=== PATIENT | female | born 2000 | race Caucasian/White ===

== ENCOUNTER 2022-08-02 16:04 | Outpatient (REF) | payer BC, SELFPAY ==
[2022-08-02 16:41] LABS: Free T4 Free Thyroxine* 0.95 ng/dL (0.70-1.85)
== END 2022-08-02 16:05 | disposition home or self-care (01) ==
LOC: NPINS 16:04
PROVIDERS: PCP Psychiatry & Neurology Psychiatry; Visit Provider Psychiatry & Neurology Psychiatry
DX: F25.9 Schizoaffective disorder, unspecified (principal)
CPT/HCPCS: 84439; 84443

== ENCOUNTER 2025-02-25 10:17 | Outpatient (CLI) | payer BC, SELFPAY ==
[2025-02-25 13:26] LABS: Albumin* 4.3 g/dL (3.3-5.0); Chloride* 103 mmol/L (96-114); Sodium* 137 mmol/L (135-149)
[2025-02-25 13:28] LABS: Blood Urea Nitrogen* 8 mg/dL (5-24); Creatinine* 0.6 mg/dL (0.5-1.5); Estimated Glomerular Filt Rate 127 ml/min
[2025-02-25 13:29] LABS: Alanine Aminotransferase* 13 U/L (4-35); Alkaline Phosphatase* 52 U/L (40-150); Anion Gap 8 mEq/L (7-15); Aspartate Amino Transferase* 25 U/L (12-35); Bilirubin Total* 0.7 mg/dL (0.1-1.5); Carbon Dioxide* 26 mmol/L (20-32); Cholesterol* 140 mg/dL (90-199); Glucose* 89 mg/dL (60-115); HDL Cholesterol* 51 mg/dL (>=50); LDL Cholesterol Calculated 76 mg/dL (<100); Total Protein* 7.2 g/dL (6.0-8.3); Triglycerides* 67 mg/dL (40-149)
[2025-02-25 14:33] LABS: Hemoglobin A1C* 5.3 % (0-5.6)
[2025-02-25 16:05] LABS: Hematocrit 36.3 % (33.0-51.0); Hemoglobin* 11.6 gm/dL (12.0-16.0); Mean Corpuscular HGB Conc 32 gm/dL (32-36); Mean Corpuscular Hemoglobin 27 pg (26-34); Mean Corpuscular Volume 85 fL (80-100); Platelet Count* 220 K/uL (140-440); Red Blood Count 4.29 m/uL (4.00-5.20); White Blood Count* 5.35 K/uL (4.50-11.00)
[2025-02-25 16:06] LABS: Slide Review Reflex No
== END 2025-02-25 10:18 | disposition home or self-care (01) ==
LOC: NPINS 10:19
PROVIDERS: PCP Family Medicine; Visit Provider Nurse Practitioner Psychiatric/Mental Health
DX: F25.0 Schizoaffective disorder, bipolar type (principal)
CPT/HCPCS: 80053; 80061; 83036; 85027

== ENCOUNTER 2025-11-08 02:42 | Emergency (ER) | payer BC, SELFPAY ==
--- OUTSIDE RECORDS SUMMARY | 2025-11-05 21:55 | XMS_ITS | Encounter Summary ---
Author Organization [facility] Address [address] [place] [address] Care Team Providers Care Physical Therapist Assistant Name Role Phone [facility], [facility] Primary Care Provider Reason for Visit * ReasonCommentsExtremity Weakness Encounter Details DateTypeDepartmentCare Team (Latest Contact Info)Hcabudsfclv46/26/2025 9:55 PM TELEGRAPH REPEATER INSTALLER - 11/05/2025 11:16 PM CSTEmergenron [facility] Emergency Dept [address] [place] [address] Marianne Wilde, DO [facility] [address] [place], [place] [address] Weakness (Primary Dx); Bilateral hip pain Discharge Disposition: Home or Self Care Social History Tobacco UseTypesPacks/DayYears UsedDateSmoking Tobacco: Never AssessedAdolescent EducationAnswerDate RecordedGetting School Help NeededNot on file08/03/2023 CommentsNoSex and Gender InformationValueDate RecordedSex Assigned at BirthNot on fileLegal PogGfppey07/21/2021 10:33 PM CDTGender IdentityNot on file Sexual OrientationNot on filedocumented as of this encounter Last Filed Vital Signs Vital SignReadingTime TakenCommentsBlood Mpeawyhf200/8411/05/2025 11:10 PM TELEGRAPH REPEATER INSTALLER Grfax631511/05/2025 11:10 PM NZABngnutvmvgr07.6 ??C (97.9 ??F)11/05/2025 7:20 PM CSTRespiratory Ihrq605001/06/2025 7:20 PM CSTOxygen Ktcymdqzfm70%11/05/2025 11:10 PM CSTInhaled Oxygen Concentration--Gtqsur97.8 kg (145 lb)11/05/2025 7:20 PM TELEGRAPH REPEATER INSTALLER Witbwr906.3 cm (5' 3.5)11/05/2025 7:20 PM CSTBody Mass Index25.28101/06/2025 7:20 PM CSTdocumented in this encounter Functional Status * Calculated C-SSRS Risk Score (Lifetime/Recent)AnswerDate of AssessmentAuthorNo Risk Pljhhljbo85/26/2025 7:27 PM Cherri Friedman RN * [place] Suicide Severity Rating Scale (Screener/Recent Self-Report)Question AnswerDate of AssessmentAuthor1. Wish to be (Past 1 Month)No11/05/2025 7:27 PM Cherri Friedman RN2. Non-Specific Active Suicidal Thoughts (Past 1 Month)No11/05/2025 7:27 PM Cherri Friedman RN6. Suicidal Behavior (Lifetime)No11/05/2025 7:27 PM Cherri Friedman RN documented as of this encounter Discharge Instructions * Discharge Instructions* Marianne Wilde DO - 11/05/2025 11:08 PM TELEGRAPH REPEATER INSTALLER Please call your PCP as you may need formal pelvic ultrasound in outpatient setting. Monitor for fever, increasing abdominal pain GRAPH REPEATER INSTALLER * Attachments The following attachments cannot be sent through Care Everywhere. * Weakness: Generalized (Uzbek) documented in this encounter Medications at Time of Discharge MedicationSigDispense QuantityRefillsLast FilledStart DateEnd Date ibuprofen (ADVIL/MOTRIN) 600 MG tablet Take 1 tablet (600 mg) by mouth every 6 hours as needed for moderate pain. 20 tablet 501/documented as of this encounter ED Notes * Chetna Paige RN - 11/05/2025 11:15 PM CST Pt discharged. Discharged instructions and papers given. Discharged ambulatory in stable condition.A&Ox4 GRAPH REPEATER INSTALLER * Andry Marianne Mariela, DO - 11/05/2025 11:14 PM CST Emergency Department Note History of Present Illness Chief Complaint Weakness HPI Priya Gaffney is a 24 year old female presenting with weakness amongst other complaints. Patient reports for the past few months having intermittent episodes of weakness predominantly to her lower extremities. She reports feeling as though they are Jell-O. She reports occasional bilateral hip/flank discomfort but seems to be relieved when she is laying flat. Today she was at work and felt as though her legs may have been giving out on her prompting her presentation to the ED. She has occasionally taken ibuprofen which has helped though she did not take anything for analgesia today. She denies any fever, cough, dyspnea, chest pain, significant abdominal pain, current back pain, paresthesias, bladder/bowel incontinence or dysuria. She does note scant vaginal discharge though denies any vaginal bleeding. No concerns for STIs. Independent Historian None Review of External Notes none Past Medical History Medical History and Problem List No past medical history on file. Medications ibuprofen (ADVIL/MOTRIN) 600 MG tablet Surgical History No past surgical history on file. Physical Exam Patient Vitals for the past 24 hrs: BP Temp Temp src Pulse Resp SpO2 Height Weight 11/05/25 2107 108/67 -- -- -- -- 100 % -- -- 11/05/25 1920 114/48 97.9 ??F (36.6 ??C) Temporal 76 18 100 % 1.613 m (5' 3.5) 65.8 kg (145 lb) 11/05/25 1837 128/64 98.3 ??F (36.8 ??C) Oral 86 16 99 % -- -- Physical Exam General: Well-nourished, nontoxic Eyes: PERRL, EOMI, no nystagmus. No scleral icterus or conjunctival injection. ENT: Moist mucus membranes, posterior oropharynx clear without erythema or exudates. TM normal bilaterally Neck: Supple with full range of motion Respiratory: Lungs clear to auscultation bilaterally, no crackles/rubs/wheezes. Good air movement CV: Normal rate and rhythm GI: Abdomen soft and non-distended. No tenderness, guarding or rebound. No CVA tenderness Pelvic: Normal external genitalia. No vaginal bleeding. Scant white cervical discharge. No CMT or adnexal tenderness noted. Cervical os closed. Mattress Stripper RN Gely Skin: Warm, dry. No rashes or petechiae MSK: No peripheral edema. No c/t/l bony tenderness; no bilateral hip tenderness, no overlying warmth/erythema; no b/l knee tenderness Neuro: Alert. No aphasia/facial droop/dysarthria. Tongue midline, normal strength at SCM/trapezius/BUE/BLE. Normal finger to nose. Normal gait. Sensation intact over face/BUE/BLE Psychiatric: Flat affect Diagnostics Lab Results Labs Ordered and Resulted from Time of ED Arrival to Time of ED Departure ROUTINE UA WITH MICROSCOPIC REFLEX TO CULTURE - Abnormal Result Value Color Urine Light Yellow Appearance Urine Slightly Cloudy (*) Glucose Urine Negative Bilirubin Urine Negative Ketones Urine 20 (*) Specific [place] Urine 1.009 Blood Urine Negative pH Urine 7.5 (*) Protein Albumin Urine Negative Urobilinogen Urine Normal Nitrite Urine Negative Leukocyte Esterase Urine Negative Bacteria Urine Moderate (*) Mucus Urine Present (*) RBC Urine 1 WBC Urine 3 Squamous Epithelials Urine 11 (*) BASIC METABOLIC PANEL (LIMITED OCCURRENCES) - Normal Sodium 140 Potassium 4.0 Chloride 104 Carbon Dioxide (CO2) 23 Anion Gap 13 Urea Nitrogen 7.2 Creatinine 0.61 GFR Estimate >90 Calcium 9.4 Glucose 89 HCG QUALITATIVE URINE - Normal hCG Urine Qualitative Negative MAGNESIUM (LIMITED OCCURRENCES) - Normal Magnesium 1.9 HEPATIC FUNCTION PANEL (LIMITED OCCURRENCES) - Normal Protein Total 7.9 Albumin 4.8 Bilirubin Total 0.5 Alkaline Phosphatase 55 AST 23 ALT 13 Bilirubin Direct 0.14 CBC WITH PLATELETS AND DIFFERENTIAL WBC Count 5.34 RBC Count 4.47 Hemoglobin 12.3 Hematocrit 38.1 MCV 85.2 MCH 27.5 MCHC 32.3 RDW 13.3 Platelet Count 236 % Neutrophils 76.5 % Lymphocytes 16.5 % Monocytes 6.0 % Eosinophils 0.4 % Basophils 0.4 % Immature Granulocytes 0.2 NRBCs per 100 WBC 0.0 Absolute Neutrophils 4.09 Absolute Lymphocytes 0.88 Absolute Monocytes 0.32 Absolute Eosinophils <0.03 Absolute Basophils <0.03 Absolute Immature Granulocytes <0.03 Absolute NRBCs <0.03 CHLAMYDIA TRACHOMATIS/NEISSERIA GONORRHOEAE PCR CHLAMYDIA TRACHOMATIS/NEISSERIA GONORRHOEAE BY PCR Imaging No orders to display Independent Interpretation None ED Course Medications Administered Medications ketorolac (TORADOL) injection 15 mg (15 mg Intravenous $Given 11/05/25 0001) Procedures Procedures Discussion of Management None ED Course Additional Documentation None Medical Decision Making / Diagnosis [facility] Diagnoses: None MIPS None [facility] Priya Gaffney is a 24 year old female presenting with complaints of weakness to lower extremities and bilateral hip/flank pain that has been intermittent for months. She describes feeling as though her legs are jello. She unfortunately had a prolonged wait time secondary to large patient volumes. She is nontoxic, in no significant distress on arrival. No focal neurologic deficits appreciated on exam. She ambulates with steady gait. She has no reproducible hip pain to necessitate emergent xray, no reported trauma or evidence to suggest septic joint. Further she does not have any significant abdominal tenderness or flank pain elicited on exam. I do not feel advanced abdominal or pelvic imaging is needed today. She did undergo formal pelvic exam which overall was reassuring, low suspicion for PID/TOA or other serious pathology at this point in time. Labs overall reassuring without profound anemia or significant electrolyte derangement. She is not . UA slightly contaminated sample though does not appear grossly infected. Formal urine culture sent. She denies any dysuria. She has no midline back tenderness on exam, no evidence to suggest cauda equina, discitis, transversemyelitis, epidural abscess or spinal cord compromise. I did discuss quite possible pain may be moremusculoskeletal. I did encourage ibuprofen use as needed though reviewed recommendation to follow-up closely with PCP as additional outpatient imaging including but not limited to pelvic ultrasound may be needed in the future should symptoms persist. She is comfortable with plan of care, all questions addressed, return precautions given. Disposition The patient was discharged. Diagnosis ICD-10-CM 1. Weakness R53.1 2. Bilateral hip pain M25.551 M25.552 Discharge Medications New Prescriptions IBUPROFEN (ADVIL/MOTRIN) 600 MG TABLET Take 1 tablet (600 mg) by mouth every 6 hours as needed for moderate pain. DO Andry Chirinos Lindsey E, DO 11/05/25 2830 GRAPH REPEATER INSTALLER * Cherri Uriostegui, RN - 11/05/2025 7:23 PM CST Pt presents with c/o 2 month history of bilateral flank/lower back pain that radiates to the hips and thighs. She says she is also having some weakness and loss of feeling in bilateral legs. Her legs feel likeJell-O. This has gotten progressively worse over the 2 months. She denies numbness but states they just do not feel normal. It is hard to stand and walk. She denies saddle numbness or loss of bowel or bladder control. Has had some difficulty starting urine stream GRAPH REPEATER INSTALLER documented in this encounter Plan of Treatment Not on file documented as of this encounter Procedures Procedure NamePriorityDate/TimeAssociated DiagnosisCommentsCHLAMYDIA TRACHOMATIS/NEISSERIA GONORRHOEAE BY RUXOHDC05/26/2025 11:06 PM TELEGRAPH REPEATER INSTALLER CHLAMYDIA TRACHOMATIS/NEISSERIA GONORRHOEAE WGNBWSZ02/26/2025 11:06 PM TELEGRAPH REPEATER INSTALLER WET TNQTHTGIEERTSSI57/26/2025 11:06 PM TELEGRAPH REPEATER INSTALLER HCG QUALITATIVE WJCDSHGJV66/26/2025 8:13 PM TELEGRAPH REPEATER INSTALLER ROUTINE UA WITH MICROSCOPIC REFLEX TO IZJTSQCVXVS79/26/2025 8:13 PM TELEGRAPH REPEATER INSTALLER EXTRA XCWLRVMY51/26/2025 8:11 PM TELEGRAPH REPEATER INSTALLER EXTRA RED TOP XSKIDNVR22/26/2025 8:11 PM TELEGRAPH REPEATER INSTALLER EXTRA BLUE TOP SEKEBHYT34/26/2025 8:11 PM TELEGRAPH REPEATER INSTALLER CBC WITH PLATELETS AND MQURASSTHLVKOHSX07/26/2025 8:11 PM TELEGRAPH REPEATER INSTALLER CBC WITH PLATELETS AND DIFFERENTIAL (LIMITED OCCURRENCES)STAT101/06/2025 8:11 PM TELEGRAPH REPEATER INSTALLER HEPATIC FUNCTION PANEL (LIMITED OCCURRENCES)Add-On11/05/2025 8:11 PM TELEGRAPH REPEATER INSTALLER BASIC METABOLIC PANEL (LIMITED OCCURRENCES)STAT101/06/2025 8:11 PM TELEGRAPH REPEATER INSTALLER MAGNESIUM (LIMITED OCCURRENCES)STAT101/06/2025 8:11 PM TELEGRAPH REPEATER INSTALLER documented in this encounter Results * Chlamyda trachomatis/Neisseria gonorrhoeae by PCR (11/05/2025 11:06 PM TELEGRAPH REPEATER INSTALLER) ComponentValueRef RangeTest MethodAnalysis TimePerformed AtPathologist SignatureChlamydia XgkwcentspsAzonzbvfWncqxkey80/27/2025 10:39 AM CSTUU IDD LABORATORYComment: Negative for C. trachomatis rRNA by cosmetics machine operator mediated amplification. A negative result by cosmetics machine operator mediated amplification does not preclude the presence of infection because results are dependent on proper and adequate collection, absence of inhibitors and sufficient rRNA to be detected. Neisseria cxezzmjphblKarzlapuVvssivnn71/27/2025 10:39 AM CSTUU IDD LABORATORY Comment: Negative for N. gonorrhoeae rRNA by cosmetics machine operator mediated amplification. A negative result by cosmetics machine operator mediated amplification does not preclude the presence of N. gonorrhoeae infection because results are dependent on proper and adequate collection, absence of inhibitors and sufficient rRNA to be detected. CTNG Specimen TlhjrgTgevvb53/27/2025 10:39 AM CSTUU IDD LABORATORYSpecimen (Source)Anatomical Location / LateralityCollection Method / VolumeCollection TimeReceived TimeSwabCERVIX UTERI STRUCTURE / UnknownNon-blood Collection / Jmelvxl1211/05/2025 11:06 PM CST11/05/2025 11:12 PM TELEGRAPH REPEATER INSTALLER Narrative Authorizing ProviderResult TypeResult StatusLinbeverly Wilde DOLAB - MICRO GENERAL ORDERABLESFinal ResultPerforming OrganizationAddressCity/State/ZIP Code Phone Number [facility] Inf. Diseases Di[facility]. Lab [address], [address] [place] [address], [facility] * Wet prep (11/05/2025 11:06 PM TELEGRAPH REPEATER INSTALLER)ComponentValueRef RangeTest MethodAnalysis TimePerformed AtPathologist SignatureTrichomonasAbsentAbsent INA 11/05/2025 11:19 PM CSTRH LABORATORYYeastAbsentAbsent INA 11/05/2025 11:19 PM [facility] LABORATORYClue CellsAbsentAbsent INA 11/05/2025 11:19 PM [facility] LABORATORYWBCs/high power fieldNoneNone INA 11/05/2025 11:19 PM [facility] LABORATORYSpecimen (Source)Anatomical Location / LateralityCollection Method / VolumeCollection TimeReceived TimeSwabVAGINAL STRUCTURE / UnknownNon-blood Collection / Bpvvuvq0111/05/2025 11:06 PM TELEGRAPH REPEATER INSTALLER 11/05/2025 11:12 PM TELEGRAPH REPEATER INSTALLER Narrative Authorizing ProviderResult TypeResult StatusLinbeverly Wilde DOLAB - MICRO GENERAL ORDERABLESFinal ResultPerforming OrganizationAddressCity/State/ZIP Code Phone Number [facility] [address] Lab (1st floor, no room number) [place] [address] * HCG qualitative urine (11/05/2025 8:13 PM TELEGRAPH REPEATER INSTALLER)ComponentValueRef RangeTest MethodAnalysis TimePerformed AtPathologist SignaturehCG Urine Qualitative NegativeNegative INA 11/05/2025 8:24 PM [facility] LABORATORYComment:This test is for screening purposes. Results should be interpreted along with the clinical picture.Confirmation testing is available if warranted by ordering [id number], HCG Quantitative .Specimen (Source)Anatomical Location / LateralityCollection Method / VolumeCollection TimeReceived TimeUrineMID-STREAM URINE SPECIMEN / UnknownNon- blood Collection / Ewbhoxs3711/05/2025 8:13 PM CST11/05/2025 8:17 PM TELEGRAPH REPEATER INSTALLER Narrative Authorizing ProviderResult TypeResult StatusMarianne Wilde DOLAB - URINE ORDERABLESFinal ResultPerforming OrganizationAddressCity/State/ZIP CodePhone Number [facility] [address] Lab (1st floor, no room number) [place] [address], [facility] * (ABNORMAL) UA with Microscopic reflex to Culture (11/05/2025 8:13 PM TELEGRAPH REPEATER INSTALLER) ComponentValueRef RangeTest MethodAnalysis TimePerformed AtPathologist SignatureColor UrineLight YellowColorless, Straw, Light Yellow, Yellow 11/05/2025 8:37 PM [facility] LABORATORYAppearance UrineSlightly Cloudy(A)Clear 11/05/2025 8:37 PM [facility] LABORATORYGlucose UrineNegativeNegative mg/dL 11/05/2025 8:37 PM CST LABORATORYBilirubin CewmtWugfzywdIrbjupma64/26/2025 8:37 PM [facility] LABORATORYKetones Urine20(A)Negative mg/dL11/05/2025 8:37 PM TELEGRAPH REPEATER INSTALLER LABORATORYSpecific [place] Urine1.0091.003 - 1.6441211/05/2025 8:37 PM CST LABORATORYBlood JpwvxYihygrkwFgcvanux49/26/2025 8:37 PM [facility] LABORATORYpH Urine7.5(H)5.0 - 7.012 8:37 PM [facility] LABORATORYProtein Albumin Urine NegativeNegative mg/dL11/05/2025 8:37 PM [facility] LABORATORYUrobilinogen Urine NormalNormal mg/dL11/05/2025 8:37 PM [facility] LABORATORYNitrite UrineNegative Noeaxrxz49/26/2025 8:37 PM [facility] LABORATORYLeukocyte Esterase UrineNegative Otkdptir94/26/2025 8:37 PM [facility] LABORATORYBacteria UrineModerate(A)None Seen /HPF11/05/2025 8:37 PM [facility] LABORATORYMucus UrinePresent(A)None Seen /LPF 11/05/2025 8:37 PM [facility] LABORATORYRBC Urine1<=2 /HPF11/05/2025 8:37 PM [facility] LABORATORYWBC Urine3<=5 /HPF11/05/2025 8:37 PM [facility] LABORATORYSquamous Epithelials Urine11(H)<=1 /HPF11/05/2025 8:37 PM [facility] LABORATORYSpecimen (Source)Anatomical Location / LateralityCollection Method / VolumeCollection TimeReceived TimeUrineMID-STREAM URINE SPECIMEN / UnknownNon-blood Collection / Lgnjrxa5211/05/2025 8:13 PM CST11/05/2025 8:17 PM TELEGRAPH REPEATER INSTALLER Narrative LABORATORY - 11/05/2025 8:37 PM TELEGRAPH REPEATER INSTALLER Urine Culture not indicated Authorizing ProviderResult TypeResult StatusLinbeverly Wilde DOLAB - URINE ORDERABLESFinal ResultPerforming OrganizationAddressCity/State/ZIP CodePhone Number LABORATORY [facility] Lab [address] Lab (1st floor, no room number) [place] [address] * Hepatic Function Panel (Limited Occurrences) (11/05/2025 8:11 PM TELEGRAPH REPEATER INSTALLER)Component ValueRef RangeTest MethodAnalysis TimePerformed AtPathologist SignatureProtein Total7.96.4 - 8.3 g/dL11/05/2025 10:53 PM CST LABORATORYAlbumin4.83.5 - 5.2 g/dL11/05/2025 10:53 PM CST LABORATORYBilirubin Total0.5<=1.2 mg/dL 11/05/2025 10:53 PM [facility] LABORATORYAlkaline Jnyrxqvtvfi0359 - 150 U/L 11/05/2025 10:53 PM CSTRH JYOHAIDOAYZPB917 - 45 U/L101/06/2025 10:53 PM CSTRH JNDHQVAHTDJTS180 - 50 U/L101/06/2025 10:53 PM CST LABORATORYBilirubin Direct 0.140.00 - 0.30 mg/dL11/05/2025 10:53 PM [facility] LABORATORYComment:As of 03/24/25, reference ranges and trending lines may vary depending on the testing location.Specimen (Source)Anatomical Location / LateralityCollection Method / VolumeCollection TimeReceived TimeBloodSTRUCTURE OF RIGHT HAND / Unknown Venipuncture / Wtgzdng3911/05/2025 8:11 PM CST11/05/2025 8:25 PM TELEGRAPH REPEATER INSTALLER Narrative Authorizing ProviderResult TypeResult StatusLinbeverly Wilde DOLAB - BLOOD ORDERABLESFinal ResultPerforming OrganizationAddressCity/State/ZIP CodePhone Number [facility] Lab [address] Lab (1st floor, no room number) [place] [address] * Magnesium (Limited Occurrences) (11/05/2025 8:11 PM TELEGRAPH REPEATER INSTALLER)ComponentValueRef RangeTest MethodAnalysis TimePerformed AtPathologist SignatureMagnesium1.91.7 - 2.3 mg/dL11/05/2025 10:53 PM [facility] LABORATORYSpecimen (Source)Anatomical Location / LateralityCollection Method / VolumeCollection TimeReceived Time BloodSTRUCTURE OF RIGHT HAND / UnknownVenipuncture / Khftpig5311/05/2025 8:11 PM CST11/05/2025 8:25 PM TELEGRAPH REPEATER INSTALLER Narrative Authorizing ProviderResult TypeResult StatusLindsey Mariela Wilde DOLAB - BLOOD ORDERABLESFinal ResultPerforming OrganizationAddressCity/State/ZIP CodePhone Number [facility] [address] Lab (1st floor, no room number) [place] [address], [place] * Extra Red Top Tube (11/05/2025 8:11 PM TELEGRAPH REPEATER INSTALLER)ComponentValueRef RangeTest Method Analysis TimePerformed AtPathologist SignatureHold UprehpqeFWN15/26/2025 9:31 PM CST LABORATORYSpecimen (Source)Anatomical Location / LateralityCollection Method / VolumeCollection TimeReceived TimeBloodSTRUCTURE OF RIGHT HAND / UnknownVenipuncture / Yskterk0611/05/2025 8:11 PM CST11/05/2025 8:25 PM TELEGRAPH REPEATER INSTALLER Narrative Authorizing ProviderResult TypeResult StatusLindsey E Andry DOLAB - BLOOD ORDERABLESFinal ResultPerforming OrganizationAddressCity/State/ZIP CodePhone Number [facility] [address] Lab (1st floor, no room number) [place] [address], [facility] * Extra Blue Top Tube (11/05/2025 8:11 PM TELEGRAPH REPEATER INSTALLER)ComponentValueRef RangeTest Method Analysis TimePerformed AtPathologist SignatureHold KbaimtkeKXB76/26/2025 9:31 PM [facility] LABORATORYSpecimen (Source)Anatomical Location / LateralityCollection Method / VolumeCollection TimeReceived TimeBloodSTRUCTURE OF RIGHT HAND / UnknownVenipuncture / Hgjrwjv3211/05/2025 8:11 PM CST11/05/2025 8:25 PM TELEGRAPH REPEATER INSTALLER Narrative Authorizing ProviderResult TypeResult StatusLindsey E Andry DOLAB - BLOOD ORDERABLESFinal ResultPerforming OrganizationAddressCity/State/ZIP CodePhone Number [facility] [address] Lab (1st floor, no room number) [place] [address], [facility] * CBC with platelets and differential (11/05/2025 8:11 PM TELEGRAPH REPEATER INSTALLER)ComponentValueRef RangeTest MethodAnalysis TimePerformed AtPathologist SignatureWBC Count5.34 4.00 - 11.00 10e3/uL11/05/2025 8:28 PM [facility] LABORATORYRBC Count4.473.80 - 5.20 10e6/uL11/05/2025 8:28 PM [facility] VWBXAWTJYRSuiifpymqz79.311.7 - 15.7 g/dL 11/05/2025 8:28 PM [facility] UNABKVLLOZNdwdmrzyau42.135.0 - 47.0 %11/05/2025 8:28 PM [facility] LPTRURQLHABJG10.278.0 - 100.0 fL11/05/2025 8:28 PM [facility] LABORATORY MCH27.526.5 - 33.0 pg11/05/2025 8:28 PM [facility] USLFFVDMALDJYN97.331.5 - 36.5 g/dL11/05/2025 8:28 PM [facility] ZSQOLJWXPEKUV36.310.0 - 15.0 %11/05/2025 8:28 PM [facility] LABORATORYPlatelet Aystc954169 - 450 10e3/uL11/05/2025 8:28 PM [facility] LABORATORY% Mkumfyjjtps57.5%11/05/2025 8:28 PM [facility] LABORATORY% Lymphocytes 16.5%11/05/2025 8:28 PM [facility] LABORATORY% Monocytes6.0%11/05/2025 8:28 PM [facility] LABORATORY% Eosinophils0.4%11/05/2025 8:28 PM [facility] LABORATORY% Basophils 0.4%11/05/2025 8:28 PM [facility] LABORATORY% Immature Granulocytes0.2%11/05/2025 8:28 PM [facility] LABORATORYNRBCs per 100 WBC0.0<1.0 /5764311/05/2025 8:28 PM [facility] LABORATORYAbsolute Neutrophils4.091.60 - 8.30 10e3/uL11/05/2025 8:28 PM [facility] LABORATORYAbsolute Lymphocytes0.880.80 - 5.30 10e3/uL11/05/2025 8:28 PM [facility] LABORATORYAbsolute Monocytes0.320.00 - 1.30 10e3/uL11/05/2025 8:28 PM [facility] LABORATORYAbsolute Eosinophils<0.030.00 - 0.70 10e3/uL11/05/2025 8:28 PM [facility] LABORATORYAbsolute Basophils<0.030.00 - 0.20 10e3/uL11/05/2025 8:28 PM [facility] LABORATORYAbsolute Immature Granulocytes<0.03<=0.40 10e3/uL11/05/2025 8:28 PM [facility] LABORATORYAbsolute NRBCs<0.0310e3/uL11/05/2025 8:28 PM [facility] LABORATORY Specimen (Source)Anatomical Location / LateralityCollection Method / Volume Collection TimeReceived TimeBloodSTRUCTURE OF RIGHT HAND / UnknownVenipuncture / Mefamah3711/05/2025 8:11 PM CST11/05/2025 8:25 PM TELEGRAPH REPEATER INSTALLER Narrative Authorizing ProviderResult TypeResult StatusLinbeverly Wilde DOLAB - BLOOD ORDERABLESFinal ResultPerforming OrganizationAddressCity/State/ZIP CodePhone Number [facility] [address] Lab (1st floor, no room number) [place] [address], [facility] [facility] * Basic Metabolic Panel (Limited Occurrences) (11/05/2025 8:11 PM TELEGRAPH REPEATER INSTALLER)Component ValueRef RangeTest MethodAnalysis TimePerformed AtPathologist SignatureSodium 542652 - 145 mmol/L101/06/2025 8:52 PM [facility] LABORATORYPotassium4.03.4 - 5.3 mmol/L101/06/2025 8:52 PM [facility] XMSZERULXHJtvsrwsm31320 - 107 mmol/L101/06/2025 8:52 PM [facility] LABORATORYCarbon Dioxide (CO2)2322 - 29 mmol/L101/06/2025 8:52 PM [facility] LABORATORYAnion Zqt442 - 15 mmol/L101/06/2025 8:52 PM [facility] Urea Nitrogen7.26.0 - 20.0 mg/dL11/05/2025 8:52 PM [facility] LABORATORYCreatinine 0.610.51 - 0.95 mg/dL11/05/2025 8:52 PM [facility] LABORATORYGFR Estimate>90>60 mL/min/1.56h43411/05/2025 8:52 PM [facility] LABORATORYComment:eGFR calculated using 2020 CKD-EPI equation.Calcium9.48.8 - 10.4 mg/dL11/05/2025 8:52 PM [facility] MALBKEBLTVVgnuukm5079 - 99 mg/dL11/05/2025 8:52 PM [facility] LABORATORYSpecimen (Source)Anatomical Location / LateralityCollection Method / VolumeCollection TimeReceived TimeBloodSTRUCTURE OF RIGHT HAND / UnknownVenipuncture / Unknown 11/05/2025 8:11 PM CST11/05/2025 8:25 PM TELEGRAPH REPEATER INSTALLER Narrative Authorizing ProviderResult TypeResult StatusLinbeverly Wilde DOLAB - BLOOD ORDERABLESFinal ResultPerforming OrganizationAddressCity/State/ZIP CodePhone Number [facility] [address] [facility] (1st floor, no room number) [place] [address], [facility] documented in this encounter Visit Diagnoses Diagnosis Weakness- Primary Other malaise and fatigue Bilateral hip pain Pain in joint, pelvic region and thigh documented in this encounter Administered Medications Medication OrderMAR ActionAction DateDoseRateSite ketorolac (TORADOL) injection 15 mg 15 mg, Intravenous, ONCE, On Sat11/05/25 at 2235, For 1 dose, Can cause pain on injection. If ordered intravenously (IV) : administer through a running maintenance fluid over 1 minute followed by a flush. If patient complains of pain on injection, may dilute 15-30 mg in 5 mL and push over 1 to 2 minutes. $Given11/05/2025 10:39 PM CST15 mgdocumented in this encounter Active and Recently Administered Medications Times are shown in TELEGRAPH REPEATER INSTALLER.Medication Order11/03// ketorolac (TORADOL) injection 15 mg (COMPLETED) 15 mg, Intravenous, ONCE, On Sat11/05/25 at 2235, For 1 dose, Can cause pain on injection. If ordered intravenously (IV) : administer through a running maintenance fluid over 1 minute followed by a flush. If patient complains of pain on injection, may dilute 15-30 mg in 5 mL and push over 1 to 2 minutes. * 2239 ($Given - Provider: Whitney Stafford RN) documented in this encounter Care Teams Team MemberRelationshipSpecialtyStart [facility], [address] [address] PCP - Ftiismu51/26/25documented as of this encounter
--- OUTSIDE RECORDS SUMMARY | 2025-11-08 02:44 | XMS_ITS | Encounter Summary ---
Author Organization [facility] Address [address] [place] [address] Care Team Providers Care Raw Products Director Name Role Phone [facility], [facility] Primary Care Provider Reason for Visit * ReasonOnset GjghXobtcrnvVergvwe73/27/2025 Encounter Details DateTypeDepartmentCare Team (Latest Contact Info)Cmhdwrawwgh41/27/2025Telephone [facility] Nurse Advisors [facility] [place] [address] Radha Whitney RN Results Social History Tobacco UseTypesPacks/DayYears UsedDateSmoking Tobacco: Never AssessedAdolescent EducationAnswerDate RecordedGetting School Help NeededNot on file08/03/2023 CommentsNoSex and Gender InformationValueDate RecordedSex Assigned at BirthNot on fileLegal PckPutxcz58/21/2021 10:33 PM CDTGender IdentityNot on file Sexual OrientationNot on filedocumented as of this encounter Miscellaneous Notes * Telephone Encounter - Radha Whitney RN - 11/06/2025 4:56 PM CST Pt calling for results from 11/05/25 ED Visit - results given to pt. Closing of Call: RN asked: Is there anything else I can assist you with? Yes RN stated: Thank you for visiting us at [facility]. Yes Radha Whitney RN Emergency Department Results Team ACT LENS INSPECTOR documented in this encounter Plan of Treatment Not on file documented as of this encounter Visit Diagnoses Not on filedocumented in this encounter Care Teams Team MemberRelationshipSpecialtyStart DateEnd [employer], [facility] [address] [place] [address] PCP - Rbtxuya79/26/25documented as of this encounter
--- OUTSIDE RECORDS SUMMARY | 2025-11-08 02:44 | XMS_ITS | Clinical Summary ---
Author Organization [facility] Address [address] [place] [address] Care Team Providers Care Test Pilot Name Role Phone Pcp, No Primary Care Provider Unavailabl e Allergies Active AllergyReactionsCriticalityNoted DateCommentsDust Mites03/11/2007 nasal congestion Unlisted Allergen (Include Detail In Comments)03/11/2007 seasonal allergies Medications MedicationSigDispense QuantityRefillsLast FilledStart DateEnd DateStatus fluticasone, 50 mcg per actuation, nasal (FLONASE) 50 mcg/actuation nasal spray Indications:Sore throatInhale 1 [place] in the nostril(s) 2 times daily. 1 Bottle 12002/06/2012ctive Additional Information Patient not taking.Reported on 06/05/2025 FLUoxetine (PROZAC) 10 mg capsule Take 1 capsule by mouth once daily.Active lurasidone (Latuda) 120 mg tab Take 120 mg by mouth once daily.Active Active Problems ProblemNoted DateDiagnosed DateAllergic rhinitis, cause nwxoovqosyq33/17/2007 Immunizations ImmunizationAdministration DatesNext UyoVFcQ3012/02/2003,03/21/2000,05/29/1999, 03/30/1999,01/27/1999HIB PRP-OMP (PedvaxHIB)03/21/2000,05/29/1999,03/30/1999, 01/27/1999Hepatitis B (Peds)09/28/1999,01/27/1999,1998Inactivated Polio Certjwi6212/02/2003,03/21/2000,03/30/1999,01/27/1999MMR12/02/2003,03/21/2000 Pneumococcal conj 7-Valent (Prevnar 7)12/08/2001Varicella Mcquipl9512/08/2001 Family History Medical HistoryRelationNameCommentsAllergiesFatherCancer-breastMaternal GrandmotherHyperlipidemiaMaternal GrandmotherCancer-breastMotherHeart Disease Othermaternal great grandpaDiabetesPaternal GrandmotherAsthmaNo Family History Cancer-colonNo Family HistoryRelationNameStatusCommentsFatherMaternal GrandmotherMotherOtherPaternal Grandmother Social History Tobacco UseTypesPacks/DayYears UsedDateSmoking Tobacco: NeverSmokeless Tobacco: Never Tobacco Cessation:Counseling Given: Yes Alcohol UseStandard Drinks/WeekCommentsNo0 (1 standard drink = 0.6 oz pure alcohol)CommentsNoSex and Gender InformationValueDate RecordedSex Assigned at BirthNot on fileLegal FmeBcztga46/14/2013 7:11 AM CSTGender Identity Not on fileSexual OrientationNot on file Last Filed Vital Signs Vital SignReadingTime TakenCommentsBlood Hwrxpqpk763/5907 1:16 PM CDT Juaqh748406/05/2025 1:16 PM AYRVejmclfxeln51.3 ??C (97.4 ??F)06/05/2025 1:16 PM CDTRespiratory Ryuz500306/05/2025 1:16 PM CDTOxygen Jxqjwvpjtj62%06/05/2025 1:16 PM CDTInhaled Oxygen Concentration--Ykxqqc59.3 kg (152 lb 11.2 oz)06/05/2025 1:16 PM MHRWgxacf426.6 cm (5' 4)04/01/2023 12:00 AM CDTBody Mass Index26.21 04/01/2023 12:00 AM CDT Plan of Treatment Health MaintenanceDue DateLast DoneCommentsTetanus laxfmnr9311/28/2009Depression screening for age 12+2010HIV for age 15-65011/28/2013HPV series for age 9- 45 (1 - 3-dose series)2013MI (ht and wt on same day) for age 18+ 2016Hepatitis C screening for age 18-7911/28/2016Pap test for age 21-65 2019COVID-19 vaccine series (2024- season)506/, 03/10/2021Influenza Vaccine (#1)2025Hepatitis B series for 19+Completed 09/28/1999, 01/27/1999, 1998Pneumococcal series for age 6-49Aged Out 12/08/2001No longer eligible based on patient's age to complete this topic Insurance * Guarantor: Mounika Gaffney TypeRelation to PatientDate of PhoneBilling AddressPersonal/VoeasvLkqbjp83/01/1963 [facility] [place] [id number] Care Teams Team MemberRelationshipSpecialtyStart DateEnd Date Pcp, No PCP - General12/15/13
--- OUTSIDE RECORDS SUMMARY | 2025-11-08 02:44 | XMS_ITS | Clinical Summary ---
Author Organization [place] Address [address] [place] [address] Care Team Providers Care Professional Bass Fisherman Name Role Phone [facility], [facility] Primary Care Provider Allergies No known active allergies Medications MedicationSigDispense QuantityRefillsLast FilledStart DateEnd DateStatus ibuprofen (ADVIL/MOTRIN) 600 MG tablet Take 1 tablet (600 mg) by mouth every 6 hours as needed for moderate pain. 20 tablet 5012/05/2025ctive ibuprofen (ADVIL/MOTRIN) 200 MG tablet Take 3 tablets (600 mg) by mouth every 8 hours as needed for mild pain 1 tablet Discontinued Encounters DateTypeDepartmentCare NzwzZankkskmwjw82/27/2025Telephone [facility] [address] [place] [address] Radha Whitney RN Qgshczc8911/05/2025 9:55 PM CUTTING DEPARTMENT SUPERVISOR - 11/05/2025 11:16 PM CSTEmergency [facility] [address] [place] [id number] Marianne Wilde, DO Weakness (Primary Dx); Bilateral hip pain Discharge Disposition: Home or Self Care11/05/2025Travelfrom Last 3 Months Social History Tobacco UseTypesPacks/DayYears UsedDateSmoking Tobacco: Never AssessedAdolescent EducationAnswerDate RecordedGetting School Help NeededNot on file08/03/2023 CommentsNoSex and Gender InformationValueDate RecordedSex Assigned at BirthNot on fileLegal AtgJtclpk02/21/2021 10:33 PM CDTGender IdentityNot on file Sexual OrientationNot on file Last Filed Vital Signs Vital SignReadingTime TakenCommentsBlood Openiboc727/8411/05/2025 11:10 PM CUTTING DEPARTMENT SUPERVISOR Zoeho159911/05/2025 11:10 PM CKXWowycqkscqn26.6 ??C (97.9 ??F)11/05/2025 7:20 PM CSTRespiratory Ztqv622901/06/2025 7:20 PM CSTOxygen Qotoiwpree89%11/05/2025 11:10 PM CSTInhaled Oxygen Concentration--Zdpajt36.8 kg (145 lb)11/05/2025 7:20 PM CUTTING DEPARTMENT SUPERVISOR Otakss181.3 cm (5' 3.5)11/05/2025 7:20 PM CSTBody Mass Index25.28101/06/2025 7:20 PM CUTTING DEPARTMENT SUPERVISOR Plan of Treatment Health MaintenanceDue DateLast DoneCommentsADVANCE CARE MTOMBOHV88/18/1999ANNUAL REVIEW OF HM MWBABA04 1998YEARLY PREVENTIVE VISIT2001DTAP/TDAP/TD VACCINE (6 - Tdap), 03/21/2000, 05/29/1999, Additional history existsHIV SLMGPEJYD66/18/2014HPV VACCINE (1 - 3-dose series)2013 HEPATITIS C OKGIMTNBD42/18/6583KAQ6611/28/2019PHQ-2 (once per calendar year) 2024OVID-19 VACCINE ( - season)2025INFLUENZA VACCINE (#1) 2025ZOSTER VACCINE (1 of 2)2048HEPATITIS B VACCINECompleted 09/28/1999, 01/27/1999, 1998PNEUMOCOCCAL VACCINE: PEDIATRICS (0 to 5 YEARS) AND AT-RISK PATIENTS (6 to 49 YEARS)Aged Out12/08/2001No longer eligible based on patient's age to complete this topicCHLAMYDIA SCREENINGDiscontinued 11/05/2025MENINGITIS VACCINEAged OutNo longer eligible based on patient's age to complete this topic Procedures Procedure NamePriorityDate/TimeAssociated DiagnosisCommentsCHLAMYDIA TRACHOMATIS/NEISSERIA GONORRHOEAE BY MBBQGQL67/26/2025 11:06 PM CUTTING DEPARTMENT SUPERVISOR CHLAMYDIA TRACHOMATIS/NEISSERIA GONORRHOEAE KNOQNDL22/26/2025 11:06 PM CUTTING DEPARTMENT SUPERVISOR WET PMMCPLKVJVGUMTU84/26/2025 11:06 PM CUTTING DEPARTMENT SUPERVISOR HCG QUALITATIVE JCVIMHNZB83/26/2025 8:13 PM CUTTING DEPARTMENT SUPERVISOR ROUTINE UA WITH MICROSCOPIC REFLEX TO HLYMKWPRFWO68/26/2025 8:13 PM CUTTING DEPARTMENT SUPERVISOR CBC WITH PLATELETS AND DIFFERENTIAL (LIMITED OCCURRENCES)STAT101/06/2025 8:11 PM CUTTING DEPARTMENT SUPERVISOR HEPATIC FUNCTION PANEL (LIMITED OCCURRENCES)Add-On11/05/2025 8:11 PM CUTTING DEPARTMENT SUPERVISOR MAGNESIUM (LIMITED OCCURRENCES)STAT101/06/2025 8:11 PM CUTTING DEPARTMENT SUPERVISOR EXTRA RED TOP JFKFIIEC15/26/2025 8:11 PM CUTTING DEPARTMENT SUPERVISOR EXTRA BLUE TOP KBQUNSHQ33/26/2025 8:11 PM CUTTING DEPARTMENT SUPERVISOR CBC WITH PLATELETS AND CZGPMCNGUJVLVWNJ71/26/2025 8:11 PM CUTTING DEPARTMENT SUPERVISOR EXTRA ZIYJGVOL24/26/2025 8:11 PM CUTTING DEPARTMENT SUPERVISOR BASIC METABOLIC PANEL (LIMITED OCCURRENCES)STAT101/06/2025 8:11 PM CUTTING DEPARTMENT SUPERVISOR from Last 3 Months Results * Chlamyda trachomatis/Neisseria gonorrhoeae by PCR (11/05/2025 11:06 PM CUTTING DEPARTMENT SUPERVISOR) ComponentValueRef RangeTest MethodAnalysis TimePerformed AtPathologist SignatureChlamydia GiqctgwexbtVvsbrmyxEhalwjrf07/27/2025 10:39 AM CSTUU IDD LABORATORYComment: Negative for C. trachomatis rRNA by telehealth case manager mediated amplification. A negative result by telehealth case manager mediated amplification does not preclude the presence of infection because results are dependent on proper and adequate collection, absence of inhibitors and sufficient rRNA to be detected. Neisseria ptwmvohdtswZbzvwclkYzmxgslb01/27/2025 10:39 AM CSTUU [facility]D LABORATORY Comment: Negative for N. gonorrhoeae rRNA by telehealth case manager mediated amplification. A negative result by telehealth case manager mediated amplification does not preclude the presence of N. gonorrhoeae infection because results are dependent on proper and adequate collection, absence of inhibitors and sufficient rRNA to be detected. CTNG Specimen EwskhzQkjzsj13/27/2025 10:39 AM CSTUU IDD LABORATORYSpecimen (Source)Anatomical Location / LateralityCollection Method / VolumeCollection TimeReceived TimeSwabCERVIX UTERI STRUCTURE / UnknownNon-blood Collection / Otilpez3611/05/2025 11:06 PM CST11/05/2025 11:12 PM CUTTING DEPARTMENT SUPERVISOR Narrative Authorizing ProviderResult TypeResult StatusLinbeverly KRAUSE - MICRO GENERAL ORDERABLESFinal ResultPerforming OrganizationAddressCity/State/ZIP Code Phone Number [facility] Inf. Diseases Diag. Lab [address] [facility], [address] [place] [address], [facility] * Wet prep (11/05/2025 11:06 PM CUTTING DEPARTMENT SUPERVISOR)ComponentValueRef RangeTest MethodAnalysis TimePerformed AtPathologist SignatureTrichomonasAbsentAbsent INA 11/05/2025 11:19 PM [facility] LABORATORYYeastAbsentAbsent INA 11/05/2025 11:19 PM [facility] LABORATORYClue CellsAbsentAbsent INA 11/05/2025 11:19 PM [facility] LABORATORYWBCs/high power fieldNoneNone INA 11/05/2025 11:19 PM [facility] LABORATORYSpecimen (Source)Anatomical Location / LateralityCollection Method / VolumeCollection TimeReceived TimeSwabVAGINAL STRUCTURE / UnknownNon-blood Collection / Ziwwqhq0411/05/2025 11:06 PM CUTTING DEPARTMENT SUPERVISOR 11/05/2025 11:12 PM CUTTING DEPARTMENT SUPERVISOR Narrative Authorizing ProviderResult TypeResult StatusLinbeverly KRAUSE - MICRO GENERAL ORDERABLESFinal ResultPerforming OrganizationAddressCity/State/ZIP Code Phone Number [facility] [address] [facility] (1st floor, no room number) [place] [address] * HCG qualitative urine (11/05/2025 8:13 PM CUTTING DEPARTMENT SUPERVISOR)ComponentValueRef RangeTest MethodAnalysis TimePerformed AtPathologist SignaturehCG Urine Qualitative NegativeNegative INA 11/05/2025 8:24 PM [facility] LABORATORYComment:This test is for screening purposes. Results should be interpreted along with the clinical picture.Confirmation testing is available if warranted by ordering [id number], HCG Quantitative .Specimen (Source)Anatomical Location / LateralityCollection Method / VolumeCollection TimeReceived TimeUrineMID-STREAM URINE SPECIMEN / UnknownNon- blood Collection / Ptmlwhd1211/05/2025 8:13 PM CST11/05/2025 8:17 PM CUTTING DEPARTMENT SUPERVISOR Narrative Authorizing ProviderResult TypeResult StatusLinbeverly Wilde DOLAB - URINE ORDERABLESFinal ResultPerforming OrganizationAddressCity/State/ZIP CodePhone Number [facility] Lab [address] [facility] Lab (1st floor, no room number) [place] [address] * (ABNORMAL) UA with Microscopic reflex to Culture (11/05/2025 8:13 PM CUTTING DEPARTMENT SUPERVISOR) ComponentValueRef RangeTest MethodAnalysis TimePerformed AtPathologist SignatureColor UrineLight YellowColorless, Straw, Light Yellow, Yellow 11/05/2025 8:37 PM [facility] LABORATORYAppearance UrineSlightly Cloudy(A)Clear 11/05/2025 8:37 PM [facility] LABORATORYGlucose UrineNegativeNegative mg/dL 11/05/2025 8:37 PM [facility] LABORATORYBilirubin YmzqvJdwrbmuqVvbpgynh69/26/2025 8:37 PM [facility] LABORATORYKetones Urine20(A)Negative mg/dL11/05/2025 8:37 PM CUTTING DEPARTMENT SUPERVISOR LABORATORYSpecific [place] Urine1.0091.003 - 1.2375611/05/2025 8:37 PM CST LABORATORYBlood NluucCuayrthiCgrbovoe29/26/2025 8:37 PM [facility] LABORATORYpH Urine7.5(H)5.0 - 7.012 8:37 PM [facility] LABORATORYProtein Albumin Urine NegativeNegative mg/dL11/05/2025 8:37 PM [facility] LABORATORYUrobilinogen Urine NormalNormal mg/dL11/05/2025 8:37 PM [facility] LABORATORYNitrite UrineNegative Lxwqaehf15/26/2025 8:37 PM [facility] LABORATORYLeukocyte Esterase UrineNegative Tozyntyr51/26/2025 8:37 PM [facility] LABORATORYBacteria UrineModerate(A)None Seen /HPF11/05/2025 8:37 PM [facility] LABORATORYMucus UrinePresent(A)None Seen /LPF 11/05/2025 8:37 PM [facility] LABORATORYRBC Urine1<=2 /HPF11/05/2025 8:37 PM [facility] LABORATORYWBC Urine3<=5 /HPF11/05/2025 8:37 PM [facility] LABORATORYSquamous Epithelials Urine11(H)<=1 /HPF11/05/2025 8:37 PM [facility] LABORATORYSpecimen (Source)Anatomical Location / LateralityCollection Method / VolumeCollection TimeReceived TimeUrineMID-STREAM URINE SPECIMEN / UnknownNon-blood Collection / Rbkbgxd5011/05/2025 8:13 PM CST11/05/2025 8:17 PM CUTTING DEPARTMENT SUPERVISOR Narrative LABORATORY - 11/05/2025 8:37 PM CUTTING DEPARTMENT SUPERVISOR Urine Culture not indicated Authorizing ProviderResult TypeResult StatusLindsey Mariela Wilde DOLAB - URINE ORDERABLESFinal ResultPerforming OrganizationAddressCity/State/ZIP CodePhone Number [facility] [address] Lab (1st floor, no room number) [place] [address], [facility] * Extra Red Top Tube (11/05/2025 8:11 PM CUTTING DEPARTMENT SUPERVISOR)ComponentValueRef RangeTest Method Analysis TimePerformed AtPathologist SignatureHold FxqrdviqOST23/26/2025 9:31 PM [facility] LABORATORYSpecimen (Source)Anatomical Location / LateralityCollection Method / VolumeCollection TimeReceived TimeBloodSTRUCTURE OF RIGHT HAND / UnknownVenipuncture / Xrfdqfv6411/05/2025 8:11 PM CST11/05/2025 8:25 PM CUTTING DEPARTMENT SUPERVISOR Narrative Authorizing ProviderResult TypeResult StatusLindsalma delia Wilde DOLAB - BLOOD ORDERABLESFinal ResultPerforming OrganizationAddressCity/State/ZIP CodePhone Number [facility] [address] Lab (1st floor, no room number) [place] [address] * Extra Blue Top Tube (11/05/2025 8:11 PM CUTTING DEPARTMENT SUPERVISOR)ComponentValueRef RangeTest Method Analysis TimePerformed AtPathologist SignatureHold LghsbrnvRUL24/26/2025 9:31 PM [facility] LABORATORYSpecimen (Source)Anatomical Location / LateralityCollection Method / VolumeCollection TimeReceived TimeBloodSTRUCTURE OF RIGHT HAND / UnknownVenipuncture / Tjzzjjf9211/05/2025 8:11 PM CST11/05/2025 8:25 PM CUTTING DEPARTMENT SUPERVISOR Narrative Authorizing ProviderResult TypeResult StatusLinbeverly Wilde DOLAB - BLOOD ORDERABLESFinal ResultPerforming OrganizationAddressCity/State/ZIP CodePhone Number [facility] Lab [address] [facility] Lab (1st floor, no room number) [place] [address] * CBC with platelets and differential (11/05/2025 8:11 PM CUTTING DEPARTMENT SUPERVISOR)ComponentValueRef RangeTest MethodAnalysis TimePerformed AtPathologist SignatureWBC Count5.34 4.00 - 11.00 10e3/uL11/05/2025 8:28 PM [facility] LABORATORYRBC Count4.473.80 - 5.20 10e6/uL11/05/2025 8:28 PM [facility] BWMQLMMXWKNjzhuyprxn63.311.7 - 15.7 g/dL 11/05/2025 8:28 PM [facility] IBWJSTIBMUDqntusoxrp59.135.0 - 47.0 %11/05/2025 8:28 PM [facility] IVMFVAKWZLTZZ44.278.0 - 100.0 fL11/05/2025 8:28 PM [facility] LABORATORY MCH27.526.5 - 33.0 pg11/05/2025 8:28 PM [facility] GILIKLAHUPNTHJ85.331.5 - 36.5 g/dL11/05/2025 8:28 PM [facility] QOCSOWFVUSFHU34.310.0 - 15.0 %11/05/2025 8:28 PM [facility] LABORATORYPlatelet Rxfry196726 - 450 10e3/uL11/05/2025 8:28 PM [facility] LABORATORY% Tsdtffpjujr07.5%11/05/2025 8:28 PM [facility] LABORATORY% Lymphocytes 16.5%11/05/2025 8:28 PM [facility] LAB[facility]ATORY% Monocytes6.0%11/05/2025 8:28 PM CUTTING DEPARTMENT SUPERVISOR LABORATORY% Eosinophils0.4%11/05/2025 8:28 PM [facility] LABORATORY% Basophils 0.4%11/05/2025 8:28 PM [facility] LABORATORY% Immature Granulocytes0.2%11/05/2025 8:28 PM CST LABORATORYNRBCs per 100 WBC0.0<1.0 /8299611/05/2025 8:28 PM CST LABORATORYAbsolute Neutrophils4.091.60 - 8.30 10e3/uL11/05/2025 8:28 PM CST LABORATORYAbsolute Lymphocytes0.880.80 - 5.30 10e3/uL11/05/2025 8:28 PM CST LABORATORYAbsolute Monocytes0.320.00 - 1.30 10e3/uL11/05/2025 8:28 PM [facility] LABORATORYAbsolute Eosinophils<0.030.00 - 0.70 10e3/uL11/05/2025 8:28 PM [facility] LABORATORYAbsolute Basophils<0.030.00 - 0.20 10e3/uL11/05/2025 8:28 PM [facility] LABORATORYAbsolute Immature Granulocytes<0.03<=0.40 10e3/uL11/05/2025 8:28 PM [facility] LABORATORYAbsolute NRBCs<0.0310e3/uL11/05/2025 8:28 PM [facility] LABORATORY Specimen (Source)Anatomical Location / LateralityCollection Method / Volume Collection TimeReceived TimeBloodSTRUCTURE OF RIGHT HAND / UnknownVenipuncture / Rksialt4311/05/2025 8:11 PM CST11/05/2025 8:25 PM CUTTING DEPARTMENT SUPERVISOR Narrative Authorizing ProviderResult TypeResult StatusLinbeverly Wilde DOLAB - BLOOD ORDERABLESFinal ResultPerforming OrganizationAddressCity/State/ZIP CodePhone Number [facility] Lab [address] [facility] Lab (1st floor, no room number) [place] [address], [facility] * Hepatic Function Panel (Limited Occurrences) (11/05/2025 8:11 PM CUTTING DEPARTMENT SUPERVISOR)Component ValueRef RangeTest MethodAnalysis TimePerformed AtPathologist SignatureProtein Total7.96.4 - 8.3 g/dL11/05/2025 10:53 PM [facility] LABORATORYAlbumin4.83.5 - 5.2 g/dL11/05/2025 10:53 PM [facility] LABORATORYBilirubin Total0.5<=1.2 mg/dL 11/05/2025 10:53 PM [facility] LABORATORYAlkaline Catvgofpafd7956 - 150 U/L 11/05/2025 10:53 PM [facility] PXKOOKNJTUPBU045 - 45 U/L101/06/2025 10:53 PM [facility] NPTNBEWHKCDAZ258 - 50 U/L101/06/2025 10:53 PM [facility] LABORATORYBilirubin Direct 0.140.00 - 0.30 mg/dL11/05/2025 10:53 PM [facility] LABORATORYComment:As of 03/24/25, reference ranges and trending lines may vary depending on the testing location.Specimen (Source)Anatomical Location / LateralityCollection Method / VolumeCollection TimeReceived TimeBloodSTRUCTURE OF RIGHT HAND / Unknown Venipuncture / Pzpkbvo2311/05/2025 8:11 PM CST11/05/2025 8:25 PM CUTTING DEPARTMENT SUPERVISOR Narrative Authorizing ProviderResult TypeResult StatusLinbeverly Wilde DOLAB - BLOOD ORDERABLESFinal ResultPerforming OrganizationAddressCity/State/ZIP CodePhone Number [facility] Lab [address] [facility] Lab (1st floor, no room number) [place] [address], [facility] * Basic Metabolic Panel (Limited Occurrences) (11/05/2025 8:11 PM CUTTING DEPARTMENT SUPERVISOR)Component ValueRef RangeTest MethodAnalysis TimePerformed AtPathologist SignatureSodium 430693 - 145 mmol/L101/06/2025 8:52 PM [facility] LABORATORYPotassium4.03.4 - 5.3 mmol/L101/06/2025 8:52 PM [facility] PFMDJSVQZFRfrbrfhs01865 - 107 mmol/L101/06/2025 8:52 PM [facility] LABORATORYCarbon Dioxide (CO2)2322 - 29 mmol/L101/06/2025 8:52 PM [facility] LABORATORYAnion Xcz419 - 15 mmol/L101/06/2025 8:52 PM [facility] LABORATORY Urea Nitrogen7.26.0 - 20.0 mg/dL11/05/2025 8:52 PM [facility] LABORATORYCreatinine 0.610.51 - 0.95 mg/dL11/05/2025 8:52 PM [facility] LABORATORYGFR Estimate>90>60 mL/min/1.28p56911/05/2025 8:52 PM CST LABORATORYComment:eGFR calculated using 2020 CKD-EPI equation.Calcium9.48.8 - 10.4 mg/dL11/05/2025 8:52 PM CST QHEQMYPWAXQnqdght5960 - 99 mg/dL11/05/2025 8:52 PM CST LABORATORYSpecimen (Source)Anatomical Location / LateralityCollection Method / VolumeCollection TimeReceived TimeBloodSTRUCTURE OF RIGHT HAND / UnknownVenipuncture / Unknown 11/05/2025 8:11 PM CST11/05/2025 8:25 PM CUTTING DEPARTMENT SUPERVISOR Narrative Authorizing ProviderResult TypeResult StatusLindsalma delia Wilde DOLAB - BLOOD ORDERABLESFinal ResultPerforming OrganizationAddressCity/State/ZIP CodePhone Number [facility] Lab [address] Lab (1st floor, no room number) [place] [address], [facility] * Magnesium (Limited Occurrences) (11/05/2025 8:11 PM CUTTING DEPARTMENT SUPERVISOR)ComponentValueRef RangeTest MethodAnalysis TimePerformed AtPathologist SignatureMagnesium1.91.7 - 2.3 mg/dL11/05/2025 10:53 PM [facility] LABORATORYSpecimen (Source)Anatomical Location / LateralityCollection Method / VolumeCollection TimeReceived Time BloodSTRUCTURE OF RIGHT HAND / UnknownVenipuncture / Zsefovh0411/05/2025 8:11 PM CST11/05/2025 8:25 PM CUTTING DEPARTMENT SUPERVISOR Narrative Authorizing ProviderResult TypeResult StatusLindsalma delia Wilde DOLAB - BLOOD ORDERABLESFinal ResultPerforming OrganizationAddressCity/State/ZIP CodePhone Number [facility] [address] Lab (1st floor, no room number) [place] [address], [facility] from Last 3 Months Insurance Care Teams Team MemberRelationshipSpecialtyStart DateEnd [facility], [facility] [address] [place] [address] PCP - Mrrqeve96/26/25
--- OUTSIDE RECORDS SUMMARY | 2025-11-08 02:45 | XMS_ITS | Encounter Summary ---
Author Organization [place] Address [address] [place] [address] Care Team Providers Care Rug Setter Velvet Name Role Phone [facility] Primary Care Provider Encounter Details DateTypeDepartmentCare Team (Latest Contact Info)Otuzmvlxjri11/26/2025Travel Social History Tobacco UseTypesPacks/DayYears UsedDateSmoking Tobacco: Never AssessedAdolescent EducationAnswerDate RecordedGetting School Help NeededNot on file08/03/2023 CommentsNoSex and Gender InformationValueDate RecordedSex Assigned at BirthNot on fileLegal LbrHjdfry90/21/2021 10:33 PM CDTGender IdentityNot on file Sexual OrientationNot on filedocumented as of this encounter Plan of Treatment Not on file documented as of this encounter Visit Diagnoses Not on filedocumented in this encounter Care Teams Team MemberRelationshipSpecialtyStart DateEnd [facility] [address] [place] [address] PCP - Gcbtqav20/26/25documented as of this encounter
--- NOTE | 2025-11-08 02:49 | ED.GENADULT ---
HPI - General Adult General Time Seen by Provider: 02:50 Date Seen: 11/08/25 Chief complaint: Unspecified Complaint, Adult Stated complaint: Pelvic pain, legs tingling Time Seen by Provider: 11/08/25 02:49 Source: patient, RN notes reviewed and old records reviewed Mode of arrival: ambulatory Limitations: no limitations History of Present Illness HPI narrative: 24-year-old female who presents today with pelvic pain. Patient reports low back pain started couple weeks ago, no known injury, no abdominal pain as well. Denies pain with urination, blood in the urine, vaginal bleeding or discharge, constipation or diarrhea, fevers or chills. Has been taking Tylenol and ibuprofen. Pain is worse in the evening. She says occasionally she will have tingling in her legs and arms as well. No vomiting. Related Data Home Medications ?Medication ?Instructions ?Recorded ?Confirmed lurasidone 60 mg tablet (Latuda) 120 mg PO QDAY 04/04/23 11/08/25 Allergies Allergy/AdvReac Type Severity Reaction Status Date / Time No Known Drug Allergies Allergy Verified 06/05/23 15:00 [facility] Medical History ADD (attention deficit disorder) without hyperactivity ?F98.8 - Other specified behavioral and emotional disorders with onset usually occurring in childhood and adolescence (ICD-10) Obsessive-compulsive personality disorder (~02/2022) ?F60.5 - Obsessive-compulsive personality disorder (ICD-10) Generalized anxiety disorder (~02/2022) ?F41.1 - Generalized anxiety disorder (ICD-10) Schizoaffective disorder, chronic condition (~02/2022) ?F25.9 - Schizoaffective disorder, unspecified (ICD-10) Mood swings ?R45.86 - Emotional lability (ICD-10) Surgical History No history of previous surgery Family History Mother Depression Skin cancer Breast cancer, Onset Age: 38 Maternal Grandmother Stroke Breast cancer Father Prostate cancer Mental health problem, Onset Age: 20 Maternal Grandfather Depression Social History Narrative: Single, unemployed no kids, lives in [place] Cannabis misuse / Non-smoker Rarely consumes alcohol Exam Narrative: Exam Narrative: General: Well-developed and well-nourished, no acute distress Head: Atraumatic and normocephalic Eyes: Pupils are equal reactive, extraocular motions intact, conjunctiva clear ENT: External nose and ears are normal, posterior pharynx without erythema or exudate Neck: No midline cervical tenderness, full spontaneous range of motion the neck, trachea midline, no adenopathy Heart: Regular rate and rhythm no murmurs or thrills Lungs: Clear to auscultation bilaterally without wheezes or crackles Abdomen: Soft, diffuse upper abdominal tenderness, nondistended with active bowel sounds Musculoskeletal: Bilateral low lumbar paraspinous tenderness Neurologic: Awake, alert, and oriented x3, no gross focal neurologic deficits, cranial nerves intact as tested Psych: Mood and affect are appropriate Skin: No rashes Const: Vital Signs, click to edit/add: Vital Signs - 24 hr 11/08/25 02:57 Temperature 98.7 F Pulse Rate [Pulse Oximeter] 96 Respiratory Rate 18 Blood Pressure [Ri ght Upper Arm] 122/77 Pulse Oximetry 98 Oxygen Delivery Me thod Room Air Course Course ED Course: Additional records reviewed: Emergency department visit from November 05 when patient was seen for same symptoms, at that time normal basic panel, negative urinalysis, Toradol given in the emergency department. Additional history from: None Care impacted by: Mental health Testing considered but not performed: See ED course Disposition: Patient presents today with low back pain and abdominal pain going on for couple of weeks. Worse at night, taking Tylenol and ibuprofen. On exam here vital is stable, upper abdominal tenderness as well as some bilateral low lumbar paraspinous tenderness. Reviewed labs from recent visit with normal CBC, normal bed panel, normal basic panel. Hepatic panel and lipase will be repeated, CT abdomen pelvis ordered given abdominal tenderness, anticipate discharge. Reevaluation(s) Time of Reevaluation #1: 03:50 Reevaluation #1: CT abdomen pelvis and middle interpreted by me negative for acute findings, there is moderate volume stool. Time of Reevaluation #2: 04:04 Reevaluation #2: Labs and a bili interpreted by me with mild leukopenia, otherwise normal CBC, normal hepatic panel, negative lipase. Radiology interpretation of CT agrees with my initial interpretation. Patient will be discharged with follow-up with primary care. IMPRESSION: No acute intra-abdominal/pelvic pathology identified. Vital Signs Vital signs: Initial Vital Signs Temperature 98.7 F 11/08/25 02:57 Temperature Source Temporal Artery Scan 11/08/25 02:57 Pulse Rate 96 11/08/25 02:57 Respiratory Rate 18 11/08/25 02:57 Blood Pressure 122/77 11/08/25 02:57 Blood Pressure Mean 92 11/08/25 02:57 Blood Pressure Position Sitting 11/08/25 02:57 Pulse Oximetry 98 11/08/25 02:57 Oxygen Delivery Method Room Air 11/08/25 02:57 Vital Signs Temperature 98.7 F 11/08/25 02:57 Pulse Rate 96 11/08/25 02:57 Respiratory Rate 18 11/08/25 02:57 Blood Pressure 122/77 11/08/25 02:57 Pulse Oximetry 98 11/08/25 02:57 Oxygen Delivery Method Room Air 11/08/25 02:57 Temperature 98.7 F 11/08/25 02:57 Pulse Rate 96 11/08/25 02:57 Respiratory Rate 18 11/08/25 02:57 Blood Pressure 122/77 11/08/25 02:57 Pulse Oximetry 98 11/08/25 02:57 Oxygen Delivery Method Room Air 11/08/25 02:57 Medical Decision Making Lab Data Labs: Lab Results 11/08/25 Range/Units 03:26 WBC 4.30 L (4.50-11.00) K/uL RBC 4.35 (4.00-5.20) m/uL Hgb 12.1 (12.0-16.0) gm/dL Hct 38.9 (33.0-51.0) % MCV 89 (80-100) fL MCH 28 (26-34) pg MCHC 31 L (32-36) gm/dL RDW Coeff of Lewis 13.4 (11.5-15.5) % Plt Count 221 (140-440) K/uL Neut % (Auto) 63.7 (42.0-72.0) % Lymph % (Auto) 23.5 (20-44) % Gilliam % (Auto) 9.8 (0.0-11.0) % Eos % (Auto) 2.3 (0.0-7.0) % Baso % (Auto) 0.7 (0.0-3.0) % Neut # (Auto) 2.70 (1.7-7.0) K/uL Lymph # (Auto) 1.00 (0.90-2.90) K/uL Gilliam # (Auto) 0.40 (0.00-0.90) K/UL Eos # (Auto) 0.10 (0.00-0.50) K/uL Baso # (Auto) 0.00 (0.00-0.30) K/uL Abs Immat Gran (auto) 0.00 (0.00-0.30) K/uL Imm/Tot Granulo (auto) 0.0 % Total Bilirubin 0.6 (0.1-1.5) mg/dL Direct Bilirubin 0.3 (0.0-0.5) mg/dL AST 32 (12-35) U/L ALT 18 (4-35) U/L Alkaline Phosphatase 56 (40-150) U/L Total Protein 7.3 (6.0-8.3) g/dL Albumin 4.6 (3.3-5.0) g/dL Lipase 77 (23-300) U/L Discharge Plan Discharge Clinical Impression: Low back pain, Generalized abdominal pain Patient Disposition: Home, Self-Care Condition: Stable Instructions: Acute Low Back Pain (ED), Abdominal Pain (ED) Additional Instructions: Take Tylenol and ibuprofen as needed for pain Take Flexeril as needed for back pain and spasm Follow-up with your primary care doctor in 5-7 days for recheck Activity Level: Activity as Tolerated Discharge Diet: Regular Prescriptions: No Action lurasidone [Latuda] 60 mg tablet 120 mg PO QDAY Follow Up/Referrals: Marian Keita MD [Primary Care Provider, Family Practice] Stand Alone Forms: Work/School Release, [employer] Info Instructions
[2025-11-08 02:57] VITALS: BP 122/77; PULSE 96; RESP 18; TEMP 37.1; O2SAT 98; BMI 25.7
--- NOTE | 2025-11-08 03:12 | CRLHL7_ITS ---
For Patients: As a result of the Century Cures Act, medical imaging exams and procedure reports are released immediately into your electronic medical record. You may view this report before your referring provider. If you have questions, please contact your health care provider. INDICATION: Abdominal pain. TECHNIQUE: CT abdomen and pelvis acquired with 71 cc Isovue 370 IV contrast. COMPARISON: None. FINDINGS: Lower chest: Unremarkable. Liver: Unremarkable. Gallbladder and bile ducts: Unremarkable. Pancreas: Unremarkable. Spleen: Unremarkable. Adrenal glands: Unremarkable. Kidneys: Symmetric renal enhancement. No hydronephrosis or hydroureter. No urinary calculi. GI tract: No bowel obstruction. No suspicious bowel wall thickening. No CT evidence of acute appendicitis. Vasculature: No abdominal aortic aneurysm. Grossly patent vasculature. Lymph nodes: No suspicious lymphadenopathy. Peritoneum/Abdominal Wall: No ascites or pneumoperitoneum. No acute abdominal wall abnormality. Pelvis: Normal bladder. No suspicious adnexal mass. Bones: No acute abnormality. IMPRESSION: No acute intra-abdominal/pelvic pathology identified. Please note that all CT scans at this facility use dose modulation, iterative reconstruction, and/or weight-based dosing when appropriate to reduce radiation dose to as low as reasonably achievable. Dictated by Kenny Martin MD @ 11/08/2025 3:58:17 AM (Electronically Signed)
[2025-11-08 03:37] LABS: Hematocrit* 38.9 % (33.0-51.0); Hemoglobin* 12.1 gm/dL (12.0-16.0); Immature Granulocytes Abs Auto 0.00 K/uL (0.00-0.30); Immature Granulocytes Pct Auto 0.0 %; Mean Corpuscular HGB Conc 31 gm/dL (32-36); Mean Corpuscular Hemoglobin 28 pg (26-34); Mean Corpuscular Volume 89 fL (80-100); RDW Coefficient of Variation % 13.4 % (11.5-15.5); Red Blood Count* 4.35 m/uL (4.00-5.20); White Blood Count* 4.30 K/uL (4.50-11.00)
[2025-11-08 03:49] LABS: Lymphocytes Absolute Auto 1.00 K/uL (0.90-2.90); Slide Review Reflex No
[2025-11-08 03:55] LABS: Albumin* 4.6 g/dL (3.3-5.0)
[2025-11-08 03:58] LABS: Alanine Aminotransferase* 18 U/L (4-35); Alkaline Phosphatase* 56 U/L (40-150); Aspartate Amino Transferase* 32 U/L (12-35); Bilirubin Direct* 0.3 mg/dL (0.0-0.5); Bilirubin Total* 0.6 mg/dL (0.1-1.5); Total Protein* 7.3 g/dL (6.0-8.3)
[2025-11-08] MEDS: ONDANSETRON 2 MG/ML inj 4 MG IVP (04:29)
== END 2025-11-08 05:14 | disposition home or self-care (01) ==
PROVIDERS: Emergency Provider Family Medicine; PCP Family Medicine
DX: R10.84 Generalized abdominal pain (principal); M54.50 Low back pain, unspecified
CPT/HCPCS: 36415; 74177; 80076; 83690; 85025; 96374; 96375; 99284; 99285; J1885; J2405; Q9967